=== PATIENT | female | born 1985 | race Caucasian/White ===

== ENCOUNTER 2017-03-22 16:12 | Emergency (ER) | payer BC ==
--- NOTE | 2017-03-22 16:28 | EDM.PDOC ---
ED HPI GENERAL MEDICAL PROBLEM - General Chief Complaint: Gastrointestinal Problem Stated Complaint: POSSIBLE KIDNEY STONES Time Seen by Provider: 03/22/17 16:12 Source of Information: Reports: Patient History Limitations: Reports: No Limitations - History of Present Illness INITIAL COMMENTS - FREE TEXT/NARRATIVE: 32 y.o.w.f -obese-with h/o diverticulitis, h/p Gallstones, dx'd on 02/24/2017 , Treated with Cipro and flagyl, came to the ed due to worsening of her LLQ abd. pain. Last BM this am, looses stool, no trauma. Pt has an IUD in place, LNMP feb 07 2017. No blood in stool, no N/V/D or any other acute medical issues. BP 149/94 pulse 72 Temp 37.0 RR 18 Pulse ox 100% Onset Date: 03/20/17 Onset Time: 08:00 Duration: Day(s): Location: Reports: Abdomen Quality: Reports: Dull, Pressure, Same as Previous Episode, Stabbing, Throbbing Severity: Moderate Improves with: Reports: Rest Worsens with: Reports: Movement Left lower abdomen Pain Score (Numeric/FACES): 7 - Related Data Allergies Allergy/AdvReac Type Severity Reaction Status Date / Time No Known Allergies Allergy Verified 03/22/17 16:28 Home Meds: Home Meds Ciprofloxacin HCl [Cipro] 500 mg PO BID #20 tablet 03/22/17 [Rx] Dicyclomine [Bentyl] 20 mg PO QIDACANDBED PRN #20 tablet 03/22/17 [Rx] LORazepam [Ativan] 0.5 mg PO DAILY 03/22/17 [History] Naproxen Sodium [Aleve] 220 mg PO BID PRN 03/22/17 [History] Ondansetron [Zofran] 4 mg PO Q8H PRN 03/22/17 [History] ZOLMitriptan [Zolmitriptan] 5 mg PO ASDIRECTED 03/22/17 [History] metroNIDAZOLE [Flagyl] 500 mg PO Q8H #30 tab 03/22/17 [Rx] ED ROS GENERAL - Review of Systems Review Of Systems: See Below Constitutional: Reports: No Symptoms HEENT: Reports: No Symptoms Respiratory: Reports: No Symptoms Cardiovascular: Reports: No Symptoms Endocrine: Reports: No Symptoms GI/Abdominal: Reports: Abdominal Pain : Reports: No Symptoms Musculoskeletal: Reports: No Symptoms Skin: Reports: No Symptoms Neurological: Reports: No Symptoms Psychiatric: Reports: No Symptoms Hematologic/Lymphatic: Reports: No Symptoms Immunologic: Reports: No Symptoms ED EXAM, GI/ABD - Physical Exam Exam: See Below Exam Limited By: No Limitations General Appearance: Alert, WD/WN, Moderate Distress Eyes: Bilateral: Normal Appearance Ears: Normal External Exam Nose: Normal Inspection Throat/Mouth: Normal Inspection Head: Atraumatic Neck: Normal Inspection Respiratory/Chest: No Respiratory Distress Cardiovascular: Normal Peripheral Pulses, Regular Rate, Rhythm, No JVD, No Murmur GI/Abdominal Exam: Normal Bowel Sounds, Tender (left lower abdomen) (Female) Exam: Deferred Rectal (Female) Exam: Deferred Back Exam: Normal Inspection, Full Range of Motion Extremities: Normal Inspection, Normal Range of Motion, Non-Tender, No Pedal Edema, Normal Capillary Refill Neurological: Alert, Oriented, CN II-XII Intact, Normal Cognition, Normal Gait, Normal Reflexes Psychiatric: Normal Affect, Normal Mood Skin Exam: Warm, Dry, Intact, Normal Color Lymphatic: No Adenopathy Course - Vital Signs Text/Narrative:: 32 y.o.w.f -obese-with h/o diverticulitis, h/p Gallstones, dx'd on 02/24/2017 , Treated with Cipro and flagyl, came to the ed due to worsening of her LLQ abd. pain. Last BM this am, looses stool, no trauma. Pt has an IUD in place, LNMP feb 07 2017. No blood in stool, no N/V/D or any other acute medical issues. BP 149/94 pulse 72 Temp 37.0 RR 18 Pulse ox 100% PE: Obese 32 y.o.w.f with tender LLQ abd. pain, tenderness, guarding, no rebound , nonradiationg Labs: WBC 12.6 UA: Hematuria (menstrual period) reminder of CBC and BMP were nl. Imaging: CT abd/pelvis: Gallstones and sigmoid diverticulitis Impression: IUD, Diverticulitis, Gallstones, menstrual period Tx; Levofloxacin, Flagyl, Bentyl, Toradol Reexam: Improved, pt was able to ambulate well, Vitals signs improved Plan: D/C with instructions. Last Recorded V/S: Last Vital Signs Temp 36.8 C 03/22/17 19:20 Pulse 81 03/22/17 19:20 Resp 18 03/22/17 19:20 BP 135/86 03/22/17 19:20 Pulse Ox 99 03/22/17 19:20 - Orders/Labs/Meds Labs: Laboratory Tests 03/22/17 03/22/17 03/22/17 Range/Units 17:02 17:02 17:30 WBC 12.5 H (4.5-12.0) X10-3/uL RBC 4.63 (3.23-5.20) x10(6)uL Hgb 13.4 (11.5-15.5) g/dL Hct 39.5 (30.0-51.3) % MCV 85.3 (80-96) fL MCH 28.8 (27.7-33.6) pg MCHC 33.8 (32.2-35.4) g/dL RDW 13.3 (11.5-15.5) % Plt Count 262 (125-369) X10(3)uL MPV 8.3 (7.4-10.4) fL Neut % (Auto) 68.3 (46-82) % Lymph % (Auto) 20.9 (13-37) % [place] % (Auto) 8.3 (4-12) % Eos % (Auto) 2 (1.0-5.0) % Baso % (Auto) 0 (0-2) % Neut # (Auto) 8.6 H (1.6-8.3) # Lymph # (Auto) 2.6 (0.6-5.0) # [place] # (Auto) 1.0 (0.0-1.3) # Eos # (Auto) 0.3 (0.0-0.8) # Baso # (Auto) 0.0 (0.0-0.2) # Sodium (135-145) mmol/L Potassium (3.5-5.3) mmol/L Chloride (100-110) mmol/L Carbon Dioxide (21-32) mmol/L BUN (7-18) mg/dL Creatinine (0.55-1.02) mg/dL Est Cr Clr Drug Dosing mL/min Estimated GFR (MDRD) (>60) BUN/Creatinine Ratio (9-20) Glucose (80-116) mg/dL Calcium (8.6-10.2) mg/dL Urine Color Yellow (YELLOW) Urine Appearance Slightly cloudy (CLEAR) Urine pH 5.0 (5.0-6.5) Ur Specific [place] 1.020 (1.010-1.025) Urine Protein Negative (NEGATIVE) mg/dL Urine Glucose (UA) Normal (NEGATIVE) mg/dL Urine Ketones Negative (NEGATIVE) mg/dL Urine Occult Blood Large H (NEGATIVE) Urine Nitrite Negative (NEGATIVE) Urine Bilirubin Negative (NEGATIVE) Urine Urobilinogen Normal (NEGATIVE) mg/dL Ur Leukocyte Esterase Negative (NEGATIVE) Urine RBC >100 H (0) Urine WBC 0-5 (0) Ur Squamous Epith Cells Moderate H (NS,R,O) Urine Bacteria Moderate H (NS) Urine HCG, Qual Negative (NEGATIVE) 03/22/17 Range/Units 17:30 WBC (4.5-12.0) X10-3/uL RBC (3.23-5.20) x10(6)uL Hgb (11.5-15.5) g/dL Hct (30.0-51.3) % MCV (80-96) fL MCH (27.7-33.6) pg MCHC (32.2-35.4) g/dL RDW (11.5-15.5) % Plt Count (125-369) X10(3)uL MPV (7.4-10.4) fL Neut % (Auto) (46-82) % Lymph % (Auto) (13-37) % [place] % (Auto) (4-12) % Eos % (Auto) (1.0-5.0) % Baso % (Auto) (0-2) % Neut # (Auto) (1.6-8.3) # Lymph # (Auto) (0.6-5.0) # [place] # (Auto) (0.0-1.3) # Eos # (Auto) (0.0-0.8) # Baso # (Auto) (0.0-0.2) # Sodium 140 (135-145) mmol/L Potassium 3.8 (3.5-5.3) mmol/L Chloride 106 (100-110) mmol/L Carbon Dioxide 25 (21-32) mmol/L BUN 8 (7-18) mg/dL Creatinine 0.8 (0.55-1.02) mg/dL Est Cr Clr Drug Dosing 83.51 mL/min Estimated GFR (MDRD) > 60 (>60) BUN/Creatinine Ratio 10.0 (9-20) Glucose 94 (80-116) mg/dL Calcium 8.8 (8.6-10.2) mg/dL Urine Color (YELLOW) Urine Appearance (CLEAR) Urine pH (5.0-6.5) Ur Specific [place] (1.010-1.025) Urine Protein (NEGATIVE) mg/dL Urine Glucose (UA) (NEGATIVE) mg/dL Urine Ketones (NEGATIVE) mg/dL Urine Occult Blood (NEGATIVE) Urine Nitrite (NEGATIVE) Urine Bilirubin (NEGATIVE) Urine Urobilinogen (NEGATIVE) mg/dL Ur Leukocyte Esterase (NEGATIVE) Urine RBC (0) Urine WBC (0) Ur Squamous Epith Cells (NS,R,O) Urine Bacteria (NS) Urine HCG, Qual (NEGATIVE) Meds: Medications Discontinued Medications Generic Name Dose Route Start Last Admin Trade Name Freq PRN Reason Stop Dose Admin Dicyclomine HCl 10 mg 03/22/17 16:45 03/22/17 16:51 Bentyl PO 03/22/17 16:46 10 mg ONETIME STA Administration Dicyclomine HCl 10 mg 03/22/17 19:06 03/22/17 19:15 Bentyl PO 03/22/17 19:07 10 mg ONETIME ONE Administration Dicyclomine HCl 20 mg 03/22/17 19:09 03/22/17 19:24 Bentyl PO 03/22/17 19:10 Not Given ONETIME ONE Ketorolac Tromethamine 60 mg 03/22/17 16:29 03/22/17 16:36 Toradol IM 03/22/17 16:30 60 mg ONETIME ONE Administration Levofloxacin 250 mg 03/22/17 19:05 03/22/17 19:15 Levaquin PO 03/22/17 19:06 250 mg ONETIME ONE Administration Metronidazole 500 mg 03/22/17 19:05 03/22/17 19:15 Flagyl PO 03/22/17 19:06 500 mg ONETIME ONE Administration Departure - Departure Time of Disposition: 19:17 Disposition: Home, Self-Care 01 Condition: Good Clinical Impression: Diverticulitis of sigmoid colon - Discharge Information Prescriptions: Ciprofloxacin HCl [Cipro] 500 mg PO BID #20 tablet Dicyclomine [Bentyl] 20 mg PO QIDACANDBED PRN #20 tablet PRN Reason: Spasms metroNIDAZOLE [Flagyl] 500 mg PO Q8H #30 tab Instructions: Diverticulitis Referrals: Marley Guadalupe NP [Primary Care Provider] - Forms: ED Department Discharge Additional Instructions: Please eat oatmeal daily, please increase water intake, please take the meds as recommended, please f/u PMD/GI specialist, please come back if your symptoms get worse acutely.
[2017-03-22] MEDS ORDERED: Ketorolac 60 MG/2 ML SDV IM ONE (16:29)
[2017-03-22] MEDS ORDERED: Dicyclomine 10 MG Cap PO STA (16:45)
[2017-03-22] MEDS ORDERED: Levofloxacin 250 MG Tab PO ONE (19:05)
[2017-03-22] MEDS ORDERED: metroNIDAZOLE 500 MG Tab PO ONE (19:05)
[2017-03-22] MEDS ORDERED: Dicyclomine 10 MG Cap PO ONE ×2 (19:06→19:09)
== END 2017-03-22 19:35 | disposition home or self-care (01) ==
LOC: FB.ED 16:12
DX: K57.32 Diverticulitis of large intestine without perforation or abscess without bleeding (principal); K80.80 Other cholelithiasis without obstruction; Z97.5 Presence of (intrauterine) contraceptive device; Z79.899 Other long term (current) drug therapy
CPT/HCPCS: 36415; 74176; 80048; 81001; 81025; 85025; 96372; 99284; A9270; J1885

== ENCOUNTER 2020-10-19 14:21 | Emergency (ER) | payer BC, OTHER ==
[2020-10-19] MEDS ORDERED: Sodium Chloride 0.9% 1,000 ML IV ONE (14:34)
[2020-10-19] MEDS ORDERED: Ondansetron 4 MG/2 ML SDV IVPUSH ONE (14:34)
[2020-10-19] MEDS ORDERED: Ketorolac 30 MG/ML SDV IVPUSH ONE (14:34)
--- NOTE | 2020-10-19 14:40 | EDM.PDOC ---
ED HPI GENERAL MEDICAL PROBLEM - General Stated Complaint: DIZZY/LIGHT HEADED/NUMB ARMS Time Seen by Provider: 10/19/20 14:21 Source of Information: Reports: Patient History Limitations: Reports: No Limitations - History of Present Illness INITIAL COMMENTS - FREE TEXT/NARRATIVE: c/o abd cramps no bfast, felt okay this AM, went to chiropractor, at 11:30 she developed lower abd cramps and loose BMs x 3 feels lightheaded, hands tingling, wonders if she is having a panic attack just completed menses does not work outside house PMH: sigmoid diverticulitis went to walk-in who did not do vitals and sent her here - Related Data Allergies Allergy/AdvReac Type Severity Reaction Status Date / Time No Known Allergies Allergy Verified 10/19/20 14:44 Home Meds: Home Meds Dicyclomine [Bentyl] 10 mg PO QIDACANDBED #20 cap 10/19/20 [Rx] Past Medical History Gastrointestinal History: Reports: Other (See Below) Other Gastrointestinal History: Diverticulitis DISPUTE RESOLUTION SPECIALIST History: Reports: , Other (See Below) Other DISPUTE RESOLUTION SPECIALIST History: IUD in place Neurological History: Reports: Migraines Psychiatric History: Reports: Anxiety Endocrine/Metabolic History: Reports: Obesity/BMI 30+ - Infectious Disease History Infectious Disease History: Reports: Chicken Pox - Past Surgical History Endocrine Surgical History: Reports: None Neurological Surgical History: Reports: None Musculoskeletal Surgical History: Reports: Shoulder Replacement Other Musculoskeletal Surgeries/Procedures:: Right shoulder Social & Family History - Family History Family Medical History: No Pertinent Family History - Caffeine Use Caffeine Use: Reports: Coffee ED ROS GENERAL - Review of Systems Review Of Systems: See Below Constitutional: Reports: No Symptoms HEENT: Reports: No Symptoms Respiratory: Reports: No Symptoms Cardiovascular: Reports: No Symptoms Endocrine: Reports: No Symptoms GI/Abdominal: Reports: Abdominal Pain, Diarrhea : Reports: No Symptoms Musculoskeletal: Reports: No Symptoms Skin: Reports: No Symptoms Neurological: Reports: Tingling, Other (lighteaded) Psychiatric: Reports: No Symptoms Hematologic/Lymphatic: Reports: No Symptoms Immunologic: Reports: No Symptoms ED EXAM, GI/ABD - Physical Exam Exam: See Below Exam Limited By: No Limitations General Appearance: Alert, WD/WN, Mild Distress, Other (anxious, sit in w/c, leaning forward, nontoxic, normal speech) Ears: Hearing Grossly Normal Nose: Normal Inspection Head: Atraumatic, Normocephalic Neck: Normal Inspection, Supple, Non-Tender, Full Range of Motion. No: Lymphadenopathy (R), Lymphadenopathy (L) Respiratory/Chest: No Respiratory Distress, Lungs Clear, Normal Breath Sounds, No Accessory Muscle Use, Chest Non-Tender Cardiovascular: Regular Rate, Rhythm, No Edema, No Gallop, No Murmur GI/Abdominal Exam: Normal Bowel Sounds, Soft, No Organomegaly, No Distention, Other (mild tender to deep palpation just to left of suprapubic area, no CVAT b/l) Back Exam: Normal Inspection, Full Range of Motion. No: CVA Tenderness (R), CVA Tenderness (L) Extremities: Normal Inspection, Normal Range of Motion, Non-Tender, No Pedal Edema Neurological: Alert, Oriented, CN II-XII Intact, Normal Cognition, No Motor/Sensory Deficits Psychiatric: Anxious, Other (no hyperventilation) Skin Exam: Warm, Dry, Intact, Normal Color, No Rash Lymphatic: No Adenopathy #1 Interpretation EKG Date: 10/19/20 Time: 14:29 Rhythm: NSR (wnl, no ST change, no ischemic change) Course - Vital Signs Last Recorded V/S: Last Vital Signs Temp 36.8 C 10/19/20 14:30 Pulse 71 10/19/20 14:30 Resp 16 10/19/20 14:30 BP 139/90 10/19/20 14:30 Pulse Ox 99 10/19/20 14:30 - Orders/Labs/Meds Labs: Laboratory Tests 10/19/20 10/19/20 10/19/20 Range/Units 14:45 14:45 14:45 WBC 14.9 H (3.0-10.3) x10-3/uL RBC 5.10 (3.60-5.20) x10(6)uL Hgb 15.0 (11.4-15.5) g/dL Hct 45.0 (34.2-48.2) % MCV 88.3 (76.7-100.5) fL MCH 29.4 (23.9-33.9) pg MCHC 33.4 (31.9-34.8) g/dL RDW 12.7 (12.3-16.5) % Plt Count 253 (151-488) x10(3)uL MPV 8.2 (7.1-12.4) fL Neut % (Auto) 86.5 H (30.8-76.2) % Lymph % (Auto) 8.3 L (18.4-52.1) % [place] % (Auto) 4.1 L (4.4-15.7) % Eos % (Auto) 0.7 (0.6-8.1) % Baso % (Auto) 0.4 (0.2-1.5) % Neut # (Auto) 12.9 H (1.5-6.3) x10-3/uL Lymph # (Auto) 1.2 (1.0-4.4) x10-3/uL [place] # (Auto) 0.6 (0.3-1.0) x10-3/uL Eos # (Auto) 0.1 (0.0-0.8) x10-3/uL Baso # (Auto) 0.1 (0.0-0.1) x10-3/uL Sodium 146 H (135-145) mmol/L Potassium 3.8 (3.5-5.3) mmol/L Chloride 106 (100-110) mmol/L Carbon Dioxide 27 (21-32) mmol/L BUN 10 (7-18) mg/dL Creatinine 0.9 (0.55-1.02) mg/dL Est Cr Clr Drug Dosing TNP Estimated GFR (MDRD) > 60 (>60) BUN/Creatinine Ratio 11.1 (9-20) Glucose 97 (80-116) mg/dL Calcium 9.2 (8.6-10.2) mg/dL Total Bilirubin 0.6 (0.1-1.3) mg/dL AST 19 (5-25) IU/L ALT 28 (12-36) U/L Alkaline Phosphatase 53 L (56-112) IU/L C-Reactive Protein 0.2 L (0.5-0.9) mg/dL Total Protein 7.4 (6.0-8.0) g/dL Albumin 4.0 (3.5-5.2) g/dL Globulin 3.4 g/dL Albumin/Globulin Ratio 1.2 Urine Color (YELLOW) Urine Appearance (CLEAR) Urine pH (5.0-6.5) Ur Specific [place] (1.010-1.025) Urine Protein (NEGATIVE) mg/dL Urine Glucose (UA) (NORMAL) mg/dL Urine Ketones (NEGATIVE) mg/dL Urine Occult Blood (NEGATIVE) Urine Nitrite (NEGATIVE) Urine Bilirubin (NEGATIVE) Urine Urobilinogen (NEGATIVE) mg/dL Ur Leukocyte Esterase (NEGATIVE) Urine RBC (0-5) Urine WBC (0-5) Ur Squamous Epith Cells (NS,R,O) Urine Bacteria (NS) Urine HCG, Qual (NEGATIVE) 10/19/20 10/19/20 Range/Units 15:39 15:39 WBC (3.0-10.3) x10-3/uL RBC (3.60-5.20) x10(6)uL Hgb (11.4-15.5) g/dL Hct (34.2-48.2) % MCV (76.7-100.5) fL MCH (23.9-33.9) pg MCHC (31.9-34.8) g/dL RDW (12.3-16.5) % Plt Count (151-488) x10(3)uL MPV (7.1-12.4) fL Neut % (Auto) (30.8-76.2) % Lymph % (Auto) (18.4-52.1) % [place] % (Auto) (4.4-15.7) % Eos % (Auto) (0.6-8.1) % Baso % (Auto) (0.2-1.5) % Neut # (Auto) (1.5-6.3) x10-3/uL Lymph # (Auto) (1.0-4.4) x10-3/uL [place] # (Auto) (0.3-1.0) x10-3/uL Eos # (Auto) (0.0-0.8) x10-3/uL Baso # (Auto) (0.0-0.1) x10-3/uL Sodium (135-145) mmol/L Potassium (3.5-5.3) mmol/L Chloride (100-110) mmol/L Carbon Dioxide (21-32) mmol/L BUN (7-18) mg/dL Creatinine (0.55-1.02) mg/dL Est Cr Clr Drug Dosing Estimated GFR (MDRD) (>60) BUN/Creatinine Ratio (9-20) Glucose (80-116) mg/dL Calcium (8.6-10.2) mg/dL Total Bilirubin (0.1-1.3) mg/dL AST (5-25) IU/L ALT (12-36) U/L Alkaline Phosphatase (56-112) IU/L C-Reactive Protein (0.5-0.9) mg/dL Total Protein (6.0-8.0) g/dL Albumin (3.5-5.2) g/dL Globulin g/dL Albumin/Globulin Ratio Urine Color Yellow (YELLOW) Urine Appearance Clear (CLEAR) Urine pH 7.0 H (5.0-6.5) Ur Specific [place] 1.005 L (1.010-1.025) Urine Protein Negative (NEGATIVE) mg/dL Urine Glucose (UA) Normal (NORMAL) mg/dL Urine Ketones Negative (NEGATIVE) mg/dL Urine Occult Blood Negative (NEGATIVE) Urine Nitrite Negative (NEGATIVE) Urine Bilirubin Negative (NEGATIVE) Urine Urobilinogen Normal (NEGATIVE) mg/dL Ur Leukocyte Esterase Negative (NEGATIVE) Urine RBC Not seen (0-5) Urine WBC 0-5 (0-5) Ur Squamous Epith Cells Occasional (NS,R,O) Urine Bacteria Few H (NS) Urine HCG, Qual Negative (NEGATIVE) Meds: Medications Discontinued Medications Generic Name Dose Route Start Last Admin Trade Name Freq PRN Reason Stop Dose Admin Sodium Chloride 1,000 mls @ 999 mls/hr 10/19/20 14:34 10/19/20 15:10 Normal Saline IV 10/19/20 15:34 999 mls/hr .BOLUS ONE Administration Ketorolac Tromethamine 30 mg 10/19/20 14:34 10/19/20 15:21 Ketorolac 30 Mg/Ml Sdv IVPUSH 10/19/20 14:35 30 mg ONETIME ONE Administration Ondansetron HCl 4 mg 10/19/20 14:34 10/19/20 15:19 Ondansetron 4 Mg/2 Ml Sdv IVPUSH 10/19/20 14:35 4 mg ONETIME ONE Administration - Re-Assessments/Exams Free Text/Narrative Re-Assessment/Exam: 10/19/20 16:10 resting on bed on her side, says she is feeling better, still has some anxiety, says that Toradol "always makes me sleepy" w/u neg, inc'd wbc/segs c/w high anxiety and adrenaline neg CRP goes against diverticulitis or other infectious concerns pt is more calm, less anxious, less stressed Departure - Departure Time of Disposition: 16:05 Disposition: Home, Self-Care 01 Condition: Good Clinical Impression: Colon spasm - Discharge Information *PRESCRIPTION DRUG MONITORING PROGRAM REVIEWED*: Not Applicable *COPY OF PRESCRIPTION DRUG MONITORING REPORT IN PATIENT GIANNA: Not Applicable Prescriptions: Dicyclomine [Bentyl] 10 mg PO QIDACANDBED #20 cap Additional Instructions: Maintain fluids and nutrition. Get adequate rest tonight. For colon spasm, take ibuprofen 200 mg 3 tabs and acetaminophen 500 mg 2 tabs 4 times a day for 2 days, longer if needed. For colon spasm, take dicyclomine 10 mg 1 tab 3 times a day for 2 days, longer if needed. Use moist heat for 10 minutes 3-4 times a day for 2 days. Do not skip meals while taking care not to overeat. Avoid fatty and high caloric food for 2 days. See your doctor in 4 days for further recommendations. Return to Emergency Department if you are feeling worse. Sepsis Event Note (ED) - Focused Exam Vital Signs: Vital Signs Temp Pulse Resp BP Pulse Ox 10/19/20 14:30 36.8 C 71 16 139/90 99
[2020-10-19] MEDS ORDERED: Dicyclomine 10 MG Cap PO ONE (16:06)
== END 2020-10-19 16:20 | disposition home or self-care (01) ==
LOC: FB.ED 14:21
DX: K58.9 Irritable bowel syndrome, unspecified (principal); E66.9 Obesity, unspecified; Z68.28 Body mass index [BMI] 28.0-28.9, adult
CPT/HCPCS: 36415; 80053; 81001; 81025; 85025; 86140; 96374; 96375; 99284; J1885; J2405; J7030

== ENCOUNTER 2022-12-29 23:00 | Emergency (ER) | payer OTHER ==
[2022-12-29] MEDS: Sodium Chloride 0.9% 1,000 ML IV SCH (23:25)
[2022-12-29] MEDS: Ondansetron 4 MG/2 ML SDV IVPUSH ONE (23:26)
[2022-12-29 23:39] LABS: BASOPHILS ABSOLUTE AUTO 0.1 x10-3/uL (0.0-0.1); BASOPHILS PERCENT AUTO 0.6 % (0.2-1.5); EOSINOPHILS ABSOLUTE AUTO 0.1 x10-3/uL (0.0-0.8); HEMATOCRIT 42.1 % (34.2-48.2); HEMOGLOBIN 14.4 g/dL (11.4-15.5); LYMPHOCYTES ABSOLUTE AUTO 2.1 x10-3/uL (1.0-4.4); LYMPHOCYTES PERCENT AUTO 17.3 % (18.4-52.1); MEAN CORPUSCULAR HEMOGLOBIN 29.8 pg (23.9-33.9); MEAN CORPUSCULAR HGB CONC 34.3 g/dL (31.9-34.8); MEAN CORPUSCULAR VOLUME 86.7 fL (76.7-100.5); MEAN PLATELET VOLUME 8.1 fL (7.1-12.4); MONOCYTES ABSOLUTE AUTO 0.8 x10-3/uL (0.3-1.0); MONOCYTES PERCENT AUTO 6.1 % (4.4-15.7); NEUTROPHILS ABSOLUTE AUTO 9.3 x10-3/uL (1.5-6.3); PLATELET COUNT,PLT 275 x10(3)uL (151-488); RED BLOOD CELL COUNT 4.85 x10(6)uL (3.60-5.20); RED CELL DISTRIBUTION WIDTH 13.1 % (12.3-16.5); WHITE BLOOD CELL COUNT,WBC 12.4 x10-3/uL (3.0-10.3)
[2022-12-29 23:42] LABS: BLOOD UREA NITROGEN,BUN 8 mg/dL (7-18); CALCIUM 9.5 mg/dL (8.6-10.2); CARBON DIOXIDE,CO2 28 mmol/L (21-32); CHLORIDE,CL 103 mmol/L (100-110); CREATININE 0.8 mg/dL (0.55-1.02); ESTIMATED GFR 97 mL/min (>60); GLUCOSE RANDOM 94 mg/dL (80-116); POTASSIUM,K 3.8 mmol/L (3.5-5.3); SODIUM,NA 136 mmol/L (135-145)
[2022-12-29 23:48] LABS: ALANINE AMINOTRANSFERASE,ALT 43 U/L (12-36); ALBUMIN 3.5 g/dL (3.5-5.2); ALKALINE PHOSPHATASE 51 IU/L (56-112); ASPARTATE AMNIOTRANSFERASE,AST 18 IU/L (5-25); BILIRUBIN TOTAL 0.6 mg/dL (0.1-1.3); PROTEIN TOTAL,TP 7.2 g/dL (6.0-8.0)
[2022-12-30] MEDS: Sodium Chloride 0.9% 1,000 ML IV ONE (00:23)
[2022-12-30 02:13] LABS: APPEARANCE,URINE CLEAR (CLEAR); BACTERIA,URINE RARE (NS); BILIRUBIN,URINE NEGATIVE (NEGATIVE); COLOR,URINE YELLOW (YELLOW); GLUCOSE,URINE NORMAL (NORMAL); KETONES,URINE 50 mg/dL (NEGATIVE); LEUKOCYTE ESTERASE,URINE NEGATIVE (NEGATIVE); NITRITE,URINE NEGATIVE (NEGATIVE); OCCULT BLOOD,URINE NEGATIVE (NEGATIVE); PROTEIN,URINE NEGATIVE (NEGATIVE); RBC,URINE 0-5 (0-5); SQUAMOUS EPITHELIAL CELLS,UR OCCASIONAL (NS,R,O); UROBILINOGEN,URINE NORMAL (NEGATIVE); WBC,URINE 0-5 (0-5)
== END 2022-12-30 02:42 | disposition home or self-care (01) ==
LOC: FB.ED 23:00
DX: O21.0 Mild hyperemesis gravidarum (principal); E66.9 Obesity, unspecified; Z68.26 Body mass index [BMI] 26.0-26.9, adult; Z3A.09 9 weeks gestation of pregnancy; Z79.899 Other long term (current) drug therapy
CPT/HCPCS: 36415; 80053; 81001; 85025; 96361; 96374; 99283; 99284-25; J2405; J7030

== ENCOUNTER 2023-01-30 10:14 | Emergency (ER) | payer OTHER ==
[2023-01-30] MEDS ORDERED: Ondansetron 4 MG/2 ML SDV IVPUSH ONE (10:34)
[2023-01-30 10:50] LABS: BASOPHILS PERCENT AUTO 0.4 % (0.2-1.5); EOSINOPHILS ABSOLUTE AUTO 0.1 x10-3/uL (0.0-0.8); HEMATOCRIT 40.3 % (34.2-48.2); HEMOGLOBIN 14.2 g/dL (11.4-15.5); LYMPHOCYTES ABSOLUTE AUTO 0.9 x10-3/uL (1.0-4.4); LYMPHOCYTES PERCENT AUTO 9.9 % (18.4-52.1); MEAN CORPUSCULAR HEMOGLOBIN 31.1 pg (23.9-33.9); MEAN CORPUSCULAR HGB CONC 35.3 g/dL (31.9-34.8); MEAN CORPUSCULAR VOLUME 88.1 fL (76.7-100.5); MEAN PLATELET VOLUME 8.1 fL (7.1-12.4); MONOCYTES ABSOLUTE AUTO 0.4 x10-3/uL (0.3-1.0); MONOCYTES PERCENT AUTO 4.6 % (4.4-15.7); NEUTROPHILS ABSOLUTE AUTO 7.4 x10-3/uL (1.5-6.3); NEUTROPHILS PERCENT AUTO 84.1 % (30.8-76.2); PLATELET COUNT,PLT 216 x10(3)uL (151-488); RED BLOOD CELL COUNT 4.57 x10(6)uL (3.60-5.20); RED CELL DISTRIBUTION WIDTH 13.6 % (12.3-16.5); WHITE BLOOD CELL COUNT,WBC 8.8 x10-3/uL (3.0-10.3)
[2023-01-30 11:02] LABS: BLOOD UREA NITROGEN,BUN 10 mg/dL (7-18); BUN/CREATININE RATIO 14.3 (9-20); CALCIUM 9.2 mg/dL (8.6-10.2); CARBON DIOXIDE,CO2 26 mmol/L (21-32); CHLORIDE,CL 101 mmol/L (100-110); CREATININE 0.7 mg/dL (0.55-1.02); EST CRCL DRUG DOSING (CG) 91.02 mL/min; ESTIMATED GFR 114 mL/min (>60); GLUCOSE RANDOM 88 mg/dL (80-116); SODIUM,NA 136 mmol/L (135-145)
[2023-01-30 11:08] LABS: A/G RATIO 0.8; ALANINE AMINOTRANSFERASE,ALT 36 U/L (12-36); ALBUMIN 3.3 g/dL (3.5-5.2); ALKALINE PHOSPHATASE 54 IU/L (56-112); ASPARTATE AMNIOTRANSFERASE,AST 22 IU/L (5-25); BILIRUBIN TOTAL 0.6 mg/dL (0.1-1.3); PROTEIN TOTAL,TP 7.4 g/dL (6.0-8.0)
[2023-01-30] MEDS ORDERED: Sodium Chloride 0.9% 1,000 ML IV ONE ×3 (11:19→13:44)
[2023-01-30 13:05] LABS: INFLUENZA A NAA NEGATIVE (NEGATIVE); INFLUENZA B NAA NEGATIVE (NEGATIVE); RESPIRATORY SYNCYTIAL VIR NAA NEGATIVE (NEGATIVE)
[2023-01-30 13:09] LABS: CORONAVIRUS COVID-19 NAA NEGATIVE (NEGATIVE)
[2023-01-30 14:30] LABS: BILIRUBIN,URINE NEGATIVE (NEGATIVE); GLUCOSE,URINE NORMAL (NORMAL); KETONES,URINE 150 mg/dL (NEGATIVE); LEUKOCYTE ESTERASE,URINE NEGATIVE (NEGATIVE); NITRITE,URINE NEGATIVE (NEGATIVE); OCCULT BLOOD,URINE NEGATIVE (NEGATIVE); PROTEIN,URINE NEGATIVE (NEGATIVE); UROBILINOGEN,URINE NORMAL (NEGATIVE)
[2023-01-30 14:36] LABS: APPEARANCE,URINE CLEAR (CLEAR); BACTERIA,URINE MODERATE (NS); COLOR,URINE YELLOW (YELLOW); RBC,URINE 0-5 (0-5); SQUAMOUS EPITHELIAL CELLS,UR MODERATE (NS,R,O); WBC,URINE 0-5 (0-5)
== END 2023-01-30 15:26 | disposition home or self-care (01) ==
LOC: FB.ED 10:14
DX: O21.1 Hyperemesis gravidarum with metabolic disturbance (principal); R82.4 Acetonuria; O99.212 Obesity complicating pregnancy, second trimester; Z68.28 Body mass index [BMI] 28.0-28.9, adult; Z79.899 Other long term (current) drug therapy; Z20.822 Contact with and (suspected) exposure to COVID-19; Z3A.14 14 weeks gestation of pregnancy
CPT/HCPCS: 0241U; 36415; 80053; 81001; 85025; 86140; 96361; 96374; 99284-25; J2405; J7030

== ENCOUNTER 2024-09-12 20:30 | Emergency (ER) | payer OTHER ==
[2024-09-12] MEDS ORDERED: Sodium Chloride 0.9% 10 ML Syringe FLUSH PRN (20:47)
[2024-09-12 21:24] LABS: HEMATOCRIT 44.8 % (34.2-48.2); HEMOGLOBIN 15.2 g/dL (11.4-15.5); MEAN CORPUSCULAR HEMOGLOBIN 28.3 pg (23.9-33.9); MEAN CORPUSCULAR HGB CONC 33.8 g/dL (31.9-34.8); MEAN CORPUSCULAR VOLUME 83.8 fL (76.7-100.5); MEAN PLATELET VOLUME 8.7 fL (7.1-12.4); PLATELET COUNT,PLT 292 x10(3)uL (151-488); RED BLOOD CELL COUNT 5.35 x10(6)uL (3.60-5.20); RED CELL DISTRIBUTION WIDTH 13.7 % (12.3-16.5); WHITE BLOOD CELL COUNT,WBC 15.9 x10-3/uL (3.0-10.3)
[2024-09-12 21:42] LABS: BAND PERCENT MAN 4 % (0-6); LYMPHOCYTES PERCENT MAN 23 % (13-37); MONOCYTES PERCENT MAN 6 % (4-12); SEG NEUTROPHILS PERCENT MAN 67 % (46-82)
[2024-09-12] MEDS: Sodium Chloride 0.9% 1,000 ML IV ONE ×2 (21:42→22:59)
[2024-09-12] MEDS: Ondansetron 4 MG/2 ML SDV IVPUSH ONE (21:42)
[2024-09-12 21:43] LABS: LIPASE 36 U/L (16-77)
[2024-09-12] MEDS: Pantoprazole 40 MG Vial IVPUSH ONE (21:43)
[2024-09-12 21:52] LABS: C-REACTIVE PROTEIN < 0.50 mg/dL (<0.50)
[2024-09-12 21:53] LABS: LACTIC ACID 3.5 mmol/L (0.4-2.0)
[2024-09-12 21:55] LABS: BLOOD UREA NITROGEN,BUN 9 mg/dL (7-18); CALCIUM 9.7 mg/dL (8.6-10.2); CARBON DIOXIDE,CO2 22 mmol/L (21-32); CHLORIDE,CL 103 mmol/L (100-110); ESTIMATED GFR 73 mL/min (>60); GLUCOSE RANDOM 129 mg/dL (80-116); POTASSIUM,K 3.2 mmol/L (3.5-5.3); SODIUM,NA 139 mmol/L (135-145)
[2024-09-12 21:59] LABS: A/G RATIO 1.1; ALANINE AMINOTRANSFERASE,ALT 61 U/L (12-36); ALKALINE PHOSPHATASE 76 IU/L (56-112); ASPARTATE AMNIOTRANSFERASE,AST 34 IU/L (5-25); BILIRUBIN TOTAL 0.4 mg/dL (0.1-1.3); PROTEIN TOTAL,TP 7.5 g/dL (6.0-8.0)
[2024-09-12] MEDS: LORazepam 2 MG/ML SDV IVPUSH ONE (23:00)
[2024-09-12] MEDS: Metoclopramide 10 MG/2 ML SDV IVPUSH ONE (23:00)
[2024-09-13 00:27] LABS: HEMATOCRIT 42.7 % (34.2-48.2); HEMOGLOBIN 14.2 g/dL (11.4-15.5); MEAN CORPUSCULAR HEMOGLOBIN 28.1 pg (23.9-33.9); MEAN CORPUSCULAR HGB CONC 33.2 g/dL (31.9-34.8); MEAN CORPUSCULAR VOLUME 84.7 fL (76.7-100.5); MEAN PLATELET VOLUME 8.3 fL (7.1-12.4); PLATELET COUNT,PLT 257 x10(3)uL (151-488); RED BLOOD CELL COUNT 5.04 x10(6)uL (3.60-5.20); RED CELL DISTRIBUTION WIDTH 13.3 % (12.3-16.5); WHITE BLOOD CELL COUNT,WBC 17.1 x10-3/uL (3.0-10.3)
[2024-09-13 00:35] LABS: BLOOD UREA NITROGEN,BUN 7 mg/dL (7-18); BUN/CREATININE RATIO 7.8 (9-20); CALCIUM 8.4 mg/dL (8.6-10.2); CARBON DIOXIDE,CO2 25 mmol/L (21-32); CHLORIDE,CL 106 mmol/L (100-110); CREATININE 0.9 mg/dL (0.55-1.02); EST CRCL DRUG DOSING (CG) 69.42 mL/min; ESTIMATED GFR 83 mL/min (>60); GLUCOSE RANDOM 135 mg/dL (80-116); POTASSIUM,K 3.9 mmol/L (3.5-5.3); SODIUM,NA 139 mmol/L (135-145)
[2024-09-13] MEDS: Promethazine 12.5 MG in Sodium Chloride 0.9% 50 ML IV ONE (00:35)
[2024-09-13 00:40] LABS: BAND PERCENT MAN 3 % (0-6); LYMPHOCYTES PERCENT MAN 11 % (13-37); MONOCYTES PERCENT MAN 6 % (4-12); SEG NEUTROPHILS PERCENT MAN 80 % (46-82)
[2024-09-13 00:41] LABS: A/G RATIO 1.2; ALANINE AMINOTRANSFERASE,ALT 55 U/L (12-36); ALBUMIN 3.7 g/dL (3.5-5.2); ALKALINE PHOSPHATASE 72 IU/L (56-112); ASPARTATE AMNIOTRANSFERASE,AST 30 IU/L (5-25); BILIRUBIN TOTAL 0.4 mg/dL (0.1-1.3); PROTEIN TOTAL,TP 6.9 g/dL (6.0-8.0)
[2024-09-13] MEDS: Prochlorperazine 10 MG/2 ML SDV IVPUSH ONE (01:54)
== END 2024-09-13 03:25 | disposition home or self-care (01) ==
LOC: FB.ED 20:30
DX: R11.2 Nausea with vomiting, unspecified (principal); E86.0 Dehydration; E66.9 Obesity, unspecified; Z68.33 Body mass index [BMI] 33.0-33.9, adult
CPT/HCPCS: 36415; 80053; 83605; 83690; 85025; 86140; 96361; 96365; 96375; 99283; 99284; J0780; J2060; J2405; J2470; J2550; J2765; J7030